=== PATIENT | female | born 1985 | race Caucasian/White ===

== ENCOUNTER 2021-06-13 10:55 | Emergency (ER) | payer BC, SELFPAY ==
--- NOTE | ~2021-06-13 | XR_ITS ---
EXAMINATION: XR tibia fibula LT 2V INDICATION: Left leg pain TECHNIQUE: Two views of the left tibia and fibula are obtained on four radiographs. COMPARISON: None available FINDINGS: Soft tissue swelling is seen in the anterior and lateral aspect of the proximal leg. No fra cture, dislocation, or subluxation is identified. The joint spaces are normal. IMPRESSION: 1. No acute osseous abnormality. Reviewed, dictated and finalized at location A.
--- NOTE | 2021-06-13 11:00 | ED.LOWEXIN ---
HPI - Extremity Injury (Lower) General Chief Complaint: Extremity Injury, Lower Stated Complaint: lt leg injury Time Seen by Provider: 06/13/21 11:00 Source: patient and RN notes reviewed History of Present Illness HPI Narrative: Patient is a 36-year-old female who presents the urgent care with complaints of left lower leg injury. Patient states that she fell at volleyball last night. Patient states that she has been taking Tylenol and elevating with ice for pain and comfort. Patient states that the swelling did improve with the ice but the pain is still significant. Patient states she has increased pain with weightbearing. No other acute complaints or injuries. No acute distress noted. Patient aware of the plan of care. Some parts of this dictation were generated by voice recognition software and may contain typographical and/or grammatical inaccuracies. Related Data Home Medications Medication Instructions Recorded Confirmed venlafaxine mg PO 06/13/21 Allergies Allergy/AdvReac Type Severity Reaction Status Date / Time Sulfa (Sulfonamide Allergy Unknown Verified 01/10/15 10:42 Antibiotics) sulfamethoxazole Allergy Unknown Unverified 05/18/15 21:19 trimethoprim Allergy Unknown Unverified 05/18/15 21:19 Review of Systems Review of Systems: CONSTITUTIONAL: Denies fever, chills, or sweats. EYES: Denies visual changes, redness, or discharge. ENT: Denies rhinorrhea, congestion, sore throat, or otalgia. CARDIOVASCULAR: Denies chest pain, palpitations, or edema. RESPIRATORY: Denies cough or dyspnea. GASTROINTESTINAL: Denies abdominal pain, nausea, vomiting, or diarrhea. GENITOURINARY: Denies dysuria or hematuria. SKIN: Denies rash or itching. MUSCULOSKELETAL: Reports of injury with pain and swelling to the left lower leg NEUROLOGIC: Denies headache, numbness, or weakness. All other systems reviewed are negative, except as documented in HPI. [facility] Family History Family History (Updated 01/10/15 @ 10:44 by DOCTOR UNKNOWN) Other Hypertension Social History Social History Smoking status: Never smoker Alcohol intake: never Comments At the time of my signature, I reviewed and agree with the nursing past medical, surgical, social, and family history. There is no relevant family history pertinent to the patient complaint. Exam Narrative: GENERAL: This is a well-nourished, well-developed patient, in no apparent distress. HEAD: normocephalic, atraumatic. EYES: PERRL. Sclera clear/white. Vision is grossly intact. EARS: External ears normal NOSE: External nose normal with no obvious nasal discharge, nares without redness, no rhinorrhea. THROAT: Mucous membranes moist NECK: Neck supple CARDIOVASCULAR: Regular rate and rhythm without murmurs, gallops, or rubs. RESPIRATORY: Clear to auscultation. Breath sounds equal bilaterally. No wheezes, rales, or rhonchi. SKIN: warm, intact with no suspicious lesions or rash, good texture and turgor. NEURO: awake, alert, and oriented to person, place and time. There were no obvious focal neurologic abnormalities. EXTREMITIES: Approximately 10 x 5 area of ecchymosis and edema noted to the anterior aspect of the left lower leg with mild to moderate tenderness. Range of motion of left lower leg within lumbar extremities. Exacerbated pain with weightbearing. Positive strong left pedal pulse with capillary refill less than 2 seconds. Course Vital Signs Vital signs: Vital Signs Temperature 97.1 F L 06/13/21 11:04 Pulse Rate 84 06/13/21 11:04 Respiratory Rate 16 06/13/21 11:04 Blood Pressure 120/95 H 06/13/21 11:04 Pulse Oximetry 100 06/13/21 11:04 Temperature 97.1 F L 06/13/21 11:04 Pulse Rate 84 06/13/21 11:04 Respiratory Rate 16 06/13/21 11:04 Blood Pressure 120/95 H 06/13/21 11:04 Pulse Oximetry 100 06/13/21 11:04 Reviewed-patient is informed that they may have pre-hypertension or hypertension based on a blood pressure reading
[2021-06-13 11:04] VITALS: BP 120/95; PULSE 84; RESP 16; TEMP 36.2; O2SAT 100
== END 2021-06-13 11:33 | disposition home or self-care (01) ==
PROVIDERS: Emergency Provider Nurse Practitioner Family; PCP Internal Medicine
DX: S80.12XA Contusion of left lower leg, initial encounter (principal); W19.XXXA Unspecified fall, initial encounter; Y93.68 Activity, volleyball (beach) (court)
CPT/HCPCS: 73590; 99203; G0463

== ENCOUNTER 2022-07-14 14:45 | Emergency (ER) | payer BC, SELFPAY ==
--- NOTE | 2022-07-14 14:49 | ED.URI ---
HPI - URI/Sore Throat General Chief Complaint: Upper Respiratory Infection Stated Complaint: headache, fever, chills, sore throat Time Seen by Provider: 07/14/22 14:49 Source: patient and RN notes reviewed History of Present Illness HPI Narrative: Patient is a 37-year-old female who presents the urgent care with complaints of fever, chills, headache, sore throat and body aches. Patient states that it started on . States that her COVID test at home was negative today. Patient denies of any known ill exposures. No other acute complaints. No acute distress noted. Patient read a plan of care. Some parts of this dictation were generated by voice recognition software and may contain typographical and/or grammatical inaccuracies. Related Data Home Medications Medication Instructions Recorded Confirmed venlafaxine 37.5 mg mg PO 06/13/21 capsule,extended release 24 hr buspirone 15 mg tablet mg 07/14/22 cetirizine 10 mg tablet (Zyrtec) mg 07/14/22 Allergies Allergy/AdvReac Type Severity Reaction Status Date / Time Sulfa (Sulfonamide Allergy Unknown Other Verified 07/14/22 14:58 Antibiotics) sulfamethoxazole Allergy Unknown Other Verified 07/14/22 14:58 trimethoprim Allergy Unknown Other Verified 07/14/22 14:58 Review of Systems Review of Systems: CONSTITUTIONAL: Reports a fever and chills EYES: Denies visual changes, redness, or discharge. ENT: Reports of sore throat and bilateral otalgia CARDIOVASCULAR: Denies chest pain, palpitations, or edema. RESPIRATORY: Denies cough or dyspnea. GASTROINTESTINAL: Denies abdominal pain, nausea, vomiting, or diarrhea. GENITOURINARY: Denies dysuria or hematuria. SKIN: Denies rash or itching. MUSCULOSKELETAL: Denies back pain, joint pain. Reports of body aches NEUROLOGIC: Denies headache, numbness, or weakness. All other systems reviewed are negative, except as documented in HPI. [facility] Family History Family History (Updated 01/10/15 @ 10:44 by DOCTOR UNKNOWN) Other Hypertension Social History Social History Smoking status: Never smoker Alcohol intake: never Comments At the time of my signature, I reviewed and agree with the nursing past medical, surgical, social, and family history. There is no relevant family history pertinent to the patient complaint. Exam Narrative: GENERAL: This is a well-nourished, well-developed patient, in no apparent distress. HEAD: normocephalic, atraumatic. EYES: PERRL. Sclera clear/white. Vision is grossly intact. EARS: External ears normal, auditory canals clear and without drainage, TMs normal without perforation. Hearing grossly intact. NOSE: External nose normal with no obvious nasal discharge, nares without redness, clear rhinorrhea. THROAT: Mucous membranes moist, mild erythema/edema noted to bilateral tonsils with bilateral exudate NECK: Neck supple, non-tender without lymphadenopathy CARDIOVASCULAR: Regular rate and rhythm without murmurs, gallops, or rubs. RESPIRATORY: Clear to auscultation. Breath sounds equal bilaterally. No wheezes, rales, or rhonchi. SKIN: warm, intact with no suspicious lesions or rash, good texture and turgor. NEURO: awake, alert, and oriented to person, place and time. There were no obvious focal neurologic abnormalities. EXTREMITIES: No clubbing, cyanosis, or edema. Course Course Level of Care: Express Care Visit Vital Signs Vital signs: Vital Signs Temperature 97.8 F 07/14/22 14:57 Pulse Rate 103 H 07/14/22 14:57 Respiratory Rate 16 07/14/22 14:57 Blood Pressure 126/82 07/14/22 14:57 Pulse Oximetry 100 07/14/22 14:57 Temperature 97.8 F 07/14/22 14:59 Pulse Rate 103 H 07/14/22 14:59 Respiratory Rate 16 07/14/22 14:59 Blood Pressure 126/82 07/14/22 14:59 Pulse Oximetry 100 07/14/22 14:59 Reviewed MDM - URI/Sore Throat MDM Narrative Medical decision making narrative: Reviewed lab results with the patient. She is aware flu and strep sw
[2022-07-14 14:57] VITALS: BP 126/82; PULSE 103; RESP 16; TEMP 36.6; O2SAT 100
[2022-07-14 14:59] VITALS: BP 126/82; PULSE 103; RESP 16; TEMP 36.6; O2SAT 100
== END 2022-07-14 15:17 | disposition home or self-care (01) ==
PROVIDERS: Emergency Provider Nurse Practitioner Family; PCP Internal Medicine
DX: B34.9 Viral infection, unspecified (principal); F41.9 Anxiety disorder, unspecified; F32.A Depression, unspecified
CPT/HCPCS: 87081; 87804; 87880; 99213; G0463

== ENCOUNTER 2025-02-15 13:24 | Emergency (ER) | payer OTHER, SELFPAY ==
[2025-02-15 13:29] VITALS: BP 121/93; PULSE 107; RESP 16; TEMP 36.4; O2SAT 100
[2025-02-15 13:50] LABS: EDSTREPNEGPOS1 Negative (Negative)
--- NOTE | 2025-02-15 16:14 | ED.URI ---
HPI - URI/Sore Throat General Chief Complaint: Upper Respiratory Infection Stated Complaint: Upper Respiratory Symptoms Time Seen by Provider: 02/15/25 14:45 Source: patient and RN notes reviewed Mode of arrival: ambulatory Limitations: no limitations History of Present Illness HPI Narrative: 40-year-old female presents Express Care complaining of upper respiratory symptoms for 2 days. She reports cough, congestion, body aches, sore throat, and runny nose. Patient denies any fevers, chills, nausea, vomiting, diarrhea, chest pain, shortness of breath. Patient has been taking DayQuil for symptoms with some relief. Related Data Home Medications Medication Instructions Recorded Confirmed Last Taken Type venlafaxine 37.5 mg 37.5 mg PO DAILY 06/13/21 07/14/22 Unknown History capsule,extended release 24 hr buspirone 15 mg tablet 15 mg PO BID 07/14/22 07/14/22 Unknown History cetirizine 10 mg tablet (Zyrtec) 10 mg PO DAILY 07/14/22 07/14/22 Unknown History Allergies Allergy/AdvReac Type Severity Reaction Status Date / Time Sulfa (Sulfonamide Allergy Unknown Other Verified 02/15/25 13:49 Antibiotics) sulfamethoxazole Allergy Unknown Other Verified 02/15/25 13:49 trimethoprim Allergy Unknown Other Verified 02/15/25 13:49 Review of Systems Review of Systems: CONSTITUTIONAL: Denies fever, chills, body aches, or sweats. EYES: Denies visual changes, redness, or discharge. ENT: Positive for rhinorrhea, congestion, sore throat, or otalgia. CARDIOVASCULAR: Denies chest pain, palpitations, or edema. RESPIRATORY: Positive for cough. Negative for dyspnea. GASTROINTESTINAL: Denies abdominal pain, nausea, vomiting, or diarrhea. GENITOURINARY: Denies dysuria or hematuria. SKIN: Denies rash or itching. MUSCULOSKELETAL: Denies back pain, joint pain, or myalgia. NEUROLOGIC: Denies headache, numbness, or weakness. PSYCHIATRIC: Denies anxiety or depression. All other systems reviewed are negative, except as documented in HPI. [facility] Family History Family History Other Hypertension Social History Social History Smoking status: Never smoker Alcohol intake: never Comments At the time of my signature, I reviewed and agree with the nursing past medical, surgical, social, and family history. There is no relevant family history pertinent to the patient complaint. Exam Narrative: GENERAL: This is a well-nourished, well-developed adult, in no apparent distress. They are non ill-appearing, nontoxic appearing. HEAD: normocephalic, atraumatic. EYES: Sclera clear/white. Vision is grossly intact. Conjunctiva normal bilaterally. Extraocular movements intact. EARS: External ears normal, auditory canals clear and without drainage, TMs without erythema or perforation. Hearing grossly intact. NOSE: External nose normal with no obvious nasal discharge, nasal turbinates erythematous, no rhinorrhea. THROAT: Mucous membranes moist, posterior pharynx erythematous without exudate. Uvula is midline. Postnasal drip present. NECK: Neck supple, non-tender without lymphadenopathy, masses or thyromegaly. CARDIOVASCULAR: Regular rate and rhythm without murmurs, gallops, or rubs. RESPIRATORY: Clear to auscultation. Breath sounds equal bilaterally. No wheezes, rales, or rhonchi. SKIN: warm, Dry, intact with no suspicious lesions or rash, good texture and turgor. NEURO: awake, alert, and oriented to person, place and time. There were no obvious focal neurologic abnormalities. EXTREMITIES: No joint tenderness, effusion, or edema noted. BACK: Nontender without deformity. Course Course Emergency Course: Portions of this record may have been created with voice recognition software Level of Care: Express Care Visit Vital Signs Vital signs: Vital Signs Temperature 97.5 F L 02/15/25 13:29 Pulse Rate 107 H 02/15/25 13:29 Respiratory Rate 16 02/15/25 13:29 Blood Pressure 121/93 H 02/15/25 13:29 Pulse Oximetry 100 02/15/25 13:29 Oxygen Delivery Room Air 02/15/25 13:29 Temperature 97.5 F L 02/15/25 13:29 Pulse Rate 107 H 02/15/25 13:29 Respiratory Rate 16 02/15/25 13:29 Blood Pressure 121/93 H 02/15/25 13:29 Pulse Oximetry 100 02/15/25 13:29 Oxygen Delivery Room Air 02/15/25 13:29 MDM - URI/Sore Throat MDM Narrative Medical decision making narrative: Rapid strep negative. Culture pending. Symptoms likely viral in etiology. Discussed physical exam findings. Advised supportive measures and signs/symptoms to go to the ER. Pt is appropriate for outpt treatment and f/u. Differential Diagnosis Differential diagnosis: Likely upper respiratory infection, viral infection and pharyngitis Lab Data Attestation: I reviewed the patient's lab results. Labs: Lab Results 02/15/25 Range/Units 13:32 POC Grp A Strep Screen Negative (Negative) Discharge Plan Discharge Clinical Impression: Upper respiratory infection Qualifiers: URI type: unspecified viral URI Qualified Code(s): J06.9 - Acute upper respiratory infection, unspecified Patient Disposition: Home Condition: Stable Instructions: Upper Respiratory Infection (ED) Additional Instructions: Your rapid strep swab was negative today at [facility]. You will be notified in a few days if the culture comes back positive for strep, and appropriate antibiotics will be called in for you at that time. Your symptoms are likely due to a viral illness, which is not treated with antibiotics. Viral symptoms can be present for up to 10-14 days. Take Tylenol or ibuprofen for fever or pain. Rest and stay hydrated. Follow up with your PCP in 3-5 days if symptoms are not improving. Go to the ER immediately if you develop difficulty breathing or swallowing Patient Language: American Prescriptions: No Action venlafaxine 37.5 mg capsule,extended release 24hr 37.5 mg PO DAILY cetirizine [Zyrtec] 10 mg Tablet 10 mg PO DAILY buspirone 15 mg tablet 15 mg PO BID Follow-up/Referrals: PHYSICIAN,GRADE TEACHER [Primary Care Provider] - Time of Disposition: 14:51
== END 2025-02-15 15:15 | disposition home or self-care (01) ==
DX: J06.9 Acute upper respiratory infection, unspecified (principal)
CPT/HCPCS: 87081; 87880; 99213; G0463